=== PATIENT | female | born 1960 | race Caucasian/White ===

== ENCOUNTER 2025-01-21 07:44 | Inpatient (IN) | payer MEDICARE, OTHER ==
[~2025-01-21] VITALS: Ht 162.6 cm; Wt 86.6 kg
[2025-01-21] MEDS ORDERED: PANT40TA49 PO (08:13)
[2025-01-21] MEDS ORDERED: TRAZ-257 PO (08:13)
[2025-01-21] MEDS ORDERED: MONT10TA33 PO (08:13)
[2025-01-21] MEDS ORDERED: ALBU18HF2 INH (08:13)
[2025-01-21] MEDS ORDERED: FAMO20TA8 PO (08:13)
[2025-01-21] MEDS ORDERED: ROSU20TA2 PO (08:13)
[2025-01-21 08:40] LABS: BASOPHILS % (AUTO) 0.6 % (0.0-2.0); EOSINOPHILS # (AUTO) 0.1 K/uL (0.0-0.7); EOSINOPHILS % (AUTO) 1.1 % (0.0-7.0); HEMATOCRIT 43.4 % (31.2-41.9); HEMOGLOBIN 14.5 g/dL (10.9-14.3); LYMPHOCYTES # (AUTO) 1.2 K/uL (0.8-4.8); LYMPHOCYTES % (AUTO) 20.5 % (20.5-51.5); MEAN CORPUSCULAR HEMOGLOBIN 29.7 uug (24.7-32.8); MEAN CORPUSCULAR HGB CONC 34 g/dL (32.3-35.6); MEAN CORPUSCULAR VOLUME 88.5 fL (75.5-95.3); MONOCYTES # (AUTO) 0.4 K/uL (0.1-1.30); NEUTROPHILS # (AUTO) 4.3 K/uL (1.8-8.9); NEUTROPHILS % (AUTO) 71.8 % (38.5-71.5); PLATELET COUNT (AUTO) 189 K/uL (179-408); RED CELL DISTRIBUTION WIDTH 13.5 % (12.3-17.7)
[2025-01-21 08:45] LABS: DIFFERENTIAL COMMENT 1
[2025-01-21 08:47] LABS: CALCIUM 9.6 mg/dL (8.5-10.1); CREATININE 0.7 mg/dL (0.6-1.3); POTASSIUM 3.9 mmol/L (3.5-5.1)
[2025-01-21 09:02] LABS: ALBUMIN 3.8 g/dL (3.4-5.0); BILIRUBIN,DIRECT 0.1 mg/dL (0.0-0.2); BILIRUBIN,TOTAL 0.5 mg/dL (0.2-1.0); TOTAL PROTEIN, SERUM 7.1 g/dL (6.4-8.2)
[2025-01-21] MEDS ORDERED: BUDE10.27 IH (11:14)
[2025-01-21] MEDS ORDERED: GABA300C PO (11:17)
[2025-01-21] MEDS ORDERED: CELE-85 PO (11:17)
[2025-01-21] MEDS ORDERED: ASPI81TA31 PO (11:18)
[2025-01-21] MEDS ORDERED: OMEG-49 PO (11:18)
[2025-01-21] MEDS ORDERED: MAGN100T PO (11:19)
[2025-01-21] MEDS ORDERED: VITA1CAP PO (11:19)
[2025-01-21] MEDS ORDERED: VITA-339 PO (11:21)
[2025-01-21] MEDS ORDERED: CELECOXIB 200 MG CAPSULE PO PRN (12:15)
[2025-01-21] MEDS: METOPROLOL TARTRATE 25 MG TABLET PO STA (14:41)
[2025-01-21] MEDS: FAMOTIDINE 20 MG TABLET PO SCH (20:04)
[2025-01-21] MEDS: MAGNESIUM OXIDE 400 MG TABLET PO SCH (20:05)
[2025-01-21] MEDS: GABAPENTIN 300 MG CAPSULE PO SCH (20:05)
[2025-01-21 20:49] VITALS: BP 122/74; TEMP 97.9; O2SAT 98
[2025-01-21] MEDS ORDERED: MAGNESIUM GLYCINATE PO SCH (21:00)
[2025-01-21] MEDS: TRAZODONE 100 MG TABLET PO SCH (21:02)
[2025-01-21] MEDS ORDERED: ACETAMINOPHEN 325 MG TABLET PO PRN (22:15)
[2025-01-21] MEDS ORDERED: MAGNESIUM HYDROXIDE 30 ML LIQUID UDC PO PRN (22:15)
[2025-01-21] MEDS ORDERED: ONDANSETRON 4 MG/2 ML VIAL IV PRN (22:15)
[2025-01-21] MEDS ORDERED: ALBUTEROL SULFATE 2.5 MG/3 ML NEBU NEB PRN (22:15)
[2025-01-22] VITALS: BP 109/52; TEMP 97.3; O2SAT 95
[2025-01-22 04:00] VITALS: BP 105/62; TEMP 97.5; O2SAT 100
[2025-01-22 07:30] LABS: BASOPHILS % (AUTO) 0.7 % (0.0-2.0); EOSINOPHILS # (AUTO) 0.2 K/uL (0.0-0.7); EOSINOPHILS % (AUTO) 2.3 % (0.0-7.0); HEMATOCRIT 42.3 % (31.2-41.9); HEMOGLOBIN 14.2 g/dL (10.9-14.3); LYMPHOCYTES # (AUTO) 1.8 K/uL (0.8-4.8); MEAN CORPUSCULAR HEMOGLOBIN 29.9 uug (24.7-32.8); MEAN CORPUSCULAR HGB CONC 34 g/dL (32.3-35.6); MONOCYTES # (AUTO) 0.5 K/uL (0.1-1.30); MONOCYTES % (AUTO) 6.9 % (0.0-11.0); NEUTROPHILS # (AUTO) 4.1 K/uL (1.8-8.9); NEUTROPHILS % (AUTO) 62.1 % (38.5-71.5); PLATELET COUNT (AUTO) 177 K/uL (179-408); RED BLOOD CELL COUNT(AUTO) 4.76 MIL/uL (3.63-4.92); RED CELL DISTRIBUTION WIDTH 13.4 % (12.3-17.7); WHITE BLOOD COUNT (AUTO) 6.6 K/uL (3.8-11.8)
[2025-01-22 07:38] VITALS: BP 124/50; TEMP 97.8; O2SAT 97
[2025-01-22 07:39] LABS: DIFFERENTIAL COMMENT 1
[2025-01-22 07:43] LABS: ALANINE AMINOTRANSFERASE 28 U/L (14-59); ALBUMIN 3.6 g/dL (3.4-5.0); ALKALINE PHOSPHATASE 113 U/L (50-136); ASPARTATE AMINOTRANSFERASE 17 U/L (15-37); BILIRUBIN,TOTAL 0.4 mg/dL (0.2-1.0); CALCIUM 9.2 mg/dL (8.5-10.1); CARBON DIOXIDE 25 mmol/L (21-32); CHLORIDE 105 mmol/L (98-107); CHOLESTEROL 177 mg/dL (<200); CREATININE 0.7 mg/dL (0.6-1.3); GLUCOSE 83 mg/dL (74-106); HDL CHOLESTEROL 49 mg/dL (40-60); MAGNESIUM 2.2 mg/dL (1.8-2.4); PHOSPHOROUS 3.5 mg/dL (2.5-4.9); POTASSIUM 3.8 mmol/L (3.5-5.1); SODIUM SERUM 139 mmol/L (136-145); TOTAL PROTEIN, SERUM 6.5 g/dL (6.4-8.2); TRIGLYCERIDES 101 MG/DL (30-150); UREA NITROGEN, BLOOD 11 mg/dL (7-18)
[2025-01-22 08:09] LABS: IRON, SERUM 62 ug/dL (50-175)
[2025-01-22] MEDS: OMEGA-3 FATTY ACIDS/FISH OIL CAPSULE PO SCH (08:46)
[2025-01-22] MEDS: PANTOPRAZOLE SODIUM 40 MG TABLET.DR PO SCH (08:46)
[2025-01-22] MEDS: ASPIRIN 81 MG TAB.CHEW PO SCH (08:46)
[2025-01-22] MEDS: VITAMIN B COMPLEX 1 TABLET PO SCH (08:46)
[2025-01-22] MEDS: MONTELUKAST SODIUM 10 MG TABLET PO SCH (08:46)
[2025-01-22] MEDS ORDERED: VITAMIN B COMPLEX PO SCH (09:00)
[2025-01-22] MEDS ORDERED: OMEGA PO SCH (09:00)
[2025-01-22] MEDS ORDERED: [UNRECOGNIZED DRUG - OTHER] PO SCH (09:00)
[2025-01-22] MEDS ORDERED: DHA PO SCH (09:00)
[2025-01-22] MEDS ORDERED: EPA PO SCH (09:00)
[2025-01-22] MEDS ORDERED: FISH OIL PO SCH (09:00)
[2025-01-22 11:06] VITALS: BP 133/88; TEMP 98; O2SAT 96
[2025-01-22] MEDS ORDERED: ATOR20TA PO (12:01)
[2025-01-22] MEDS ORDERED: ASPI-1101 PO (12:01)
[2025-01-22] MEDS ORDERED: FLUT1BLS INH (12:01)
[2025-01-22] MEDS ORDERED: AZIT250T13 PO (12:02)
[2025-01-22] MEDS: FLUTICASONE/VILANTEROL 1 EACH BLST.W.DEV INH SCH (12:16)
== END 2025-01-22 13:05 | disposition home health service (06) | DRG 202 ==
LOC: ER 07:44 → TELE3 10:35 → MEDSURG3 01-22 10:14
PROVIDERS: ADMIT Internal Medicine; ATTEND Internal Medicine
DX: J20.9 Acute bronchitis, unspecified (principal); B02.29 Other postherpetic nervous system involvement; K21.9 Gastro-esophageal reflux disease without esophagitis; J45.909 Unspecified asthma, uncomplicated; K44.9 Diaphragmatic hernia without obstruction or gangrene; E66.9 Obesity, unspecified; I73.9 Peripheral vascular disease, unspecified; G89.29 Other chronic pain; N32.81 Overactive bladder; N39.3 Stress incontinence (female) (male); E78.5 Hyperlipidemia, unspecified; Z86.16 Personal history of COVID-19; Z68.32 Body mass index [BMI] 32.0-32.9, adult; Z95.820 Peripheral vascular angioplasty status with implants and grafts; I25.10 Atherosclerotic heart disease of native coronary artery without angina pectoris; M15.9 Polyosteoarthritis, unspecified; Z86.79 Personal history of other diseases of the circulatory system; R94.31 Abnormal electrocardiogram [ECG] [EKG]; F41.9 Anxiety disorder, unspecified; N73.9 Female pelvic inflammatory disease, unspecified
CPT/HCPCS: 36415; 71045; 83550; 83735; 84100; 84443; 84484; 85025; 85730; 93307; A4606; A4663; G0378